=== PATIENT | male | born 1975 | race Hispanic/Latino ===

== ENCOUNTER 2019-04-22 15:37 | Emergency (ER) | payer OTHER ==
--- OUTSIDE RECORDS SUMMARY | 2019-04-22 15:49 | XMS REPORT ---
:1975 Author Organization eClinicalWorks Care Team Providers Name Role Phone Beatty, Na Provider Role Unavailable Allergies, Adverse Reactions, Alerts Substance Reaction Event Type Low-Dose Aspirin throat swells, SOB Drug Allergy Problems Problem Type Condition Code Onset Dates Condition Status Problem Other chronic pain G89.29 Active Problem Bipolar 1 disorder F31.9 Active Problem Depression with anxiety F41.8 Active Problem Pain in left knee M25.562 Active Problem Adult general medical exam Z00.00 Active Problem Hypertriglyceridemia E78.1 Active Problem GERD with esophagitis K21.0 Active Problem Migraine with aura and without G43.109 Active status migrainosus, not intractable Problem Migraine, unspecified, not G43.901 Active intractable, with status migrainosus Problem GERD without esophagitis K21.9 Active Problem GERD (gastroesophageal reflux K21.9 Active disease) Problem Asthma J45.909 Active Assessment Acute sinusitis J01.90 Active Problem Shoulder pain, right M25.511 Active Problem Allergic rhinitis J30.9 Active Medications Medication Code Code Instructions Start End Status Dosage System Date Date Omeprazole [facility] 10567580058 40 MG Orally Active 1 capsule Once a day Augmentin [facility] 53334044055 875-125 MG Aug 13, Active 1 tablet Orally every 12 2018 hrs Depakote [facility] 02118758451 500 MG Orally Active 2 tabs once a day Montelukast [facility] 71361872066 10 MG Orally Active 1 tablet Sodium Once a day in the evening [facility] 40 MG Active 1 CAP(S) ORALLY ONCE A DAY FOR 30 DAYS Albuterol ND 92059603267 (2.5 MG/3ML) Active 3 ml as Sulfate 0.083% needed Inhalation every 6 hrs Claritin [facility] 83250719068 10 MG Orally Active 1 tablet Once a day Prozac [facility] 85380313842 40 MG Orally Active 1 capsule Once a day Mirtazapine [facility] 53873000720 15 MG Orally [place] 30, Active 1 tablet Once a day 2018 at bedtime Promethazine HCl [facility] 05924586669 12.5 MG Orally Active 1 tablet every 6 hrs as needed ProAir HFA [facility] 91307849500 108 (90 Base) Active 2 puffs as MCG/ACT needed Inhalation every 6 hrs Symbicort [facility] 02637491691 160-4.5 MCG/ACT Active 2 puffs Inhalation Twice a day Results No Known Results Summary Purpose eClinicalWorks Submission
--- OUTSIDE RECORDS SUMMARY | 2019-04-22 15:49 | XMS REPORT ---
[...] Problem Pain in left knee M25.562 Active Assessment Pain in left knee M25.562 Active Problem Adult general medical exam Z00.00 Active Assessment GERD with esophagitis K21.0 Active Assessment Other chronic pain G89.29 Active Problem Hypertriglyceridemia E78.1 Active Problem GERD with esophagitis K21.0 Active Problem Migraine with aura and without G43.109 Active status migrainosus, not intractable Problem Migraine, unspecified, not G43.901 Active intractable, with status migrainosus Problem GERD without esophagitis K21.9 Active Assessment Hypertriglyceridemia E78.1 Active Assessment Depression with anxiety F41.8 Active Assessment Allergic rhinitis J30.9 Active Assessment Migraine with aura and without G43.109 Active status migrainosus, not intractable Problem GERD (gastroesophageal reflux K21.9 Active disease) Problem Asthma J45.909 Active Assessment Bipolar 1 disorder F31.9 Active Problem Shoulder pain, right M25.511 Active Problem Allergic rhinitis J30.9 Active Medications Medication Code Code Instructions Start End Status Dosage System Date Date Prozac [facility] 28884306627 40 MG Active 1 CAP(S) ORALLY ONCE A DAY FOR 30 DAYS ProAir HFA [facility] 31253335878 108 (90 Base) Active 2 puffs as MCG/ACT needed Inhalation every 6 hrs Promethazine HCl [facility] 65443653442 12.5 MG Orally Active 1 tablet every 6 hrs as needed Prozac [facility] 53856961504 40 MG Orally Active 1 capsule Once a day Montelukast ND 47903526613 10 MG Orally Active 1 tablet Sodium Once a day in the evening Symbicort [facility] 23534327791 160-4.5 MCG/ACT Active 2 puffs Inhalation Twice a day Albuterol [facility] 01466703962 (2.5 MG/3ML) Active 3 ml as Sulfate 0.083% needed Inhalation every 6 hrs Omeprazole [facility] 93232054459 40 MG Orally Active 1 capsule Once a day Depakote [facility] 69364129703 500 MG Orally Active 2 tabs once a day Mirtazapine [facility] 40362319524 15 MG Orally June 09, Active 1 tablet Once a day 2018 at bedtime Claritin [facility] 11106239389 10 MG Orally Active 1 tablet Once a day Results No Known Results Summary Purpose eClinicalWorks Submission
--- OUTSIDE RECORDS SUMMARY | 2019-04-22 15:49 | XMS REPORT ---
:1975 Author Organization eClinicalWorks Care Team Providers Name Role Phone Beatty, Na Provider Role Unavailable Allergies No Known Allergies Problems Problem Type Condition Code Onset Dates Condition Status Problem Migraine with aura and without G43.109 Active status migrainosus, not intractable Problem GERD without esophagitis K21.9 Active Problem GERD with esophagitis K21.0 Active Problem Gastro-esophageal reflux K21.9 Active Problem Seasonal allergies J30.2 Active Problem Sinusitis J32.9 Active Problem Adult general medical exam Z00.00 Active Problem Migraine, unspecified, not G43.901 Active intractable, with status migrainosus Problem Pain in left knee M25.562 Active Problem Hypertriglyceridemia E78.1 Active Problem GERD (gastroesophageal reflux K21.9 Active disease) Problem Allergic rhinitis J30.9 Active Problem Depression with anxiety F41.8 Active Problem Asthma J45.909 Active Problem Bipolar 1 disorder F31.9 Active Problem Shoulder pain, right M25.511 Active Problem Other chronic pain G89.29 Active Medications No Known Medications Results No Known Results Summary Purpose eClinicalWorks Submission
--- OUTSIDE RECORDS SUMMARY | 2019-04-22 15:49 | XMS REPORT ---
[...] K21.0 Active Problem Gastro-esophageal reflux K21.9 Active Assessment Gastro-esophageal reflux K21.9 Active Problem Seasonal allergies J30.2 Active Problem Sinusitis J32.9 Active Problem Adult general medical exam Z00.00 Active Problem Migraine, unspecified, not G43.901 Active intractable, with status migrainosus Problem Pain in left knee M25.562 Active Problem Hypertriglyceridemia E78.1 Active Problem GERD (gastroesophageal reflux K21.9 Active disease) Assessment Seasonal allergies J30.2 Active Assessment Sinusitis J32.9 Active Problem Allergic rhinitis J30.9 Active Problem Depression with anxiety F41.8 Active Problem Asthma J45.909 Active Problem Bipolar 1 disorder F31.9 Active Problem Shoulder pain, right M25.511 Active Problem Other chronic pain G89.29 Active Medications Medication Code Code Instructions Start End Status Dosage System Date Date Augmentin [facility] 85413523592 875-125 MG Aug 13, Active 1 tablet Orally every 12 2018 hrs ProAir HFA [facility] 82239921493 108 (90 Base) Active 2 puffs as MCG/ACT needed Inhalation every 6 hrs Albuterol [facility] 36797021732 (2.5 MG/3ML) Active 3 ml as Sulfate 0.083% needed Inhalation every 6 hrs Omeprazole [facility] 16878532935 40 MG Orally Active 1 capsule Once a day Mirtazapine ND 92984662306 15 MG Orally Active 1 tablet Once a day at bedtime Depakote [facility] 26549329383 500 MG Orally Active 2 tabs once a day Prozac [facility] 08328032371 40 Active 1 CAP(S) ORALLY ONCE A DAY FOR 30 DAYS Prozac [facility] 69527291792 40 MG Active 1 CAP(S) ORALLY ONCE A DAY FOR 30 DAYS Symbicort [facility] 40570309648 160-4.5 MCG/ACT Active 2 puffs Inhalation Twice a day Prozac [facility] 89148521469 40 MG Orally Active 1 capsule Once a day Promethazine HCl [facility] 01107753346 12.5 MG Orally Active 1 tablet every 6 hrs as needed Amoxicillin [facility] 46399361812 500 MG Orally Oct 15, Oct 22, Active 1 tablet every 8 hrs 2017 2017 Wellbutrin SR [facility] 94830492507 100 MG Orally Sep 10, Active 1 tablet Once a day 2017 in the morning Mirtazapine [facility] 64035839112 15 Orally Once Active 1 tablet a day at bedtime Montelukast [facility] 60569503161 10 MG Orally Active 1 tablet Sodium Once a day in the evening Claritin [facility] 19192632686 10 MG Orally Active 1 tablet Once a day Results No Known Results Summary Purpose eClinicalWorks Submission
--- OUTSIDE RECORDS SUMMARY | 2019-04-22 15:49 | XMS REPORT ---
:1975 Author Organization eClinicalWorks Care Team Providers Name Role Phone Beatty, Na Provider Role Unavailable Allergies, Adverse Reactions, Alerts Substance Reaction Event Type Low-Dose Aspirin throat swells, SOB Drug Allergy Problems Problem Type Condition Code Onset Dates Condition Status Problem Bipolar 1 disorder F31.9 Active Problem Asthma J45.909 Active Problem GERD (gastroesophageal reflux K21.9 Active disease) Problem Migraine, unspecified, not G43.901 Active intractable, with status migrainosus Problem GERD without esophagitis K21.9 Active Problem Adult general medical exam Z00.00 Active Problem Allergic rhinitis J30.9 Active Problem Shoulder pain, right M25.511 Active Problem GERD with esophagitis K21.0 Active Problem Migraine with aura and without G43.109 Active status migrainosus, not intractable Assessment Other fatigue R53.83 Active Assessment Encounter for vision screening Z01.00 Active Assessment Bipolar 1 disorder F31.9 Active Assessment Adult general medical exam Z00.00 Active Assessment Allergic rhinitis J30.9 Active Problem Other chronic pain G89.29 Active Assessment Depression with anxiety F41.8 Active Problem Depression with anxiety F41.8 Active Medications Medication Code Code Instructions Start End Status Dosage System Date Date ProAir HFA [facility] 01417731594 108 (90 Base) Active 2 puffs as MCG/ACT needed Inhalation every 6 hrs Omeprazole [facility] 23671648501 40 MG Orally Active 1 capsule Once a day Depakote [facility] 28951961635 500 MG Orally Active as directed Montelukast ND 49661728549 10 MG Orally Active 1 tablet in Sodium Once a day the evening Symbicort [facility] 56510992563 160-4.5 MCG/ACT Active 2 puffs Inhalation Twice a day Albuterol [facility] 06285678143 (2.5 MG/3ML) Active 3 ml as Sulfate 0.083% needed Inhalation every 6 hrs Prozac [facility] 89862827709 40 MG Orally Active 1 capsule Once a day Promethazine HCl [facility] 72075369906 12.5 MG Orally Active 1 tablet as every 6 hrs needed Claritin [facility] 86241983031 10 MG Orally Active 1 tablet Once a day Results No Known Results Summary Purpose eClinicalWorks Submission
--- OUTSIDE RECORDS SUMMARY | 2019-04-22 15:50 | XMS REPORT ---
[...] Active Problem Gastro-esophageal reflux K21.9 Active Assessment Hypertriglyceridemia E78.1 Active Problem Seasonal allergies J30.2 Active Assessment Allergic rhinitis J30.9 Active Assessment GERD with esophagitis K21.0 Active Problem Sinusitis J32.9 Active Problem Adult general medical exam Z00.00 Active Problem Migraine, unspecified, not G43.901 Active intractable, with status migrainosus Problem Pain in left knee M25.562 Active Problem Hypertriglyceridemia E78.1 Active Problem GERD (gastroesophageal reflux K21.9 Active disease) Assessment Depression with anxiety F41.8 Active Assessment Bipolar 1 disorder F31.9 Active Problem Allergic rhinitis J30.9 Active Problem Depression with anxiety F41.8 Active Problem Asthma J45.909 Active Problem Bipolar 1 disorder F31.9 Active Assessment Renal insufficiency N28.9 Active Problem Shoulder pain, right M25.511 Active Problem Other chronic pain G89.29 Active Medications Medication Code Code Instructions Start End Status Dosage System Date Date Depakote [facility] 99033400465 500 MG Orally Active 2 tabs once a day ProAir HFA [facility] 40969297588 108 (90 Base) Active 2 puffs as MCG/ACT needed Inhalation every 6 hrs Wellbutrin SR [facility] 08522082110 100 MG Orally Active 1 tablet Once a day in the morning Omeprazole [facility] 79259367454 40 MG Orally Active 1 capsule Once a day Mirtazapine [facility] 58532250010 15 Orally Once Active 1 tablet a day at bedtime Montelukast [facility] 32899455792 10 MG Orally Active 1 tablet Sodium Once a day in the evening Prozac [facility] 03957776666 40 MG Active 1 CAP(S) ORALLY ONCE A DAY FOR 30 DA[facility] 40 MG Orally Active 1 capsule Once a day Promethazine HCl [facility] 57320767607 12.5 MG Orally Active 1 tablet every 6 hrs as needed Albuterol [facility] 56690709463 (2.5 MG/3ML) Active 3 ml as Sulfate 0.083% needed Inhalation every 6 hrs Symbicort [facility] 63645387178 160-4.5 MCG/ACT Active 2 puffs Inhalation Twice a day Mirtazapine [facility] 48303375324 15 MG Orally Active 1 tablet Once a day at bedtime Augmentin [facility] 37835377447 875-125 MG Aug 13, Active 1 tablet Orally every 12 2018 hrs [facility] 18535304502 40 Active 1 CAP(S) ORALLY ONCE A DAY FOR 30 DAYS Claritin [facility] 00853232871 10 MG Orally Active 1 tablet Once a day Results No Known Results Summary Purpose eClinicalWorks Submission
--- OUTSIDE RECORDS SUMMARY | 2019-04-22 15:50 | XMS REPORT ---
:1975 Author Organization eClinicalWorks Care Team Providers Name Role Phone Beatty, Na Provider Role Unavailable Allergies, Adverse Reactions, Alerts Substance Reaction Event Type Low-Dose Aspirin throat swells, SOB Drug Allergy Problems Problem Type Condition Code Onset Dates Condition Status Assessment Obesity (BMI 30-39.9) E66.9 Active Assessment Insomnia, unspecified type G47.00 Active Assessment Renal insufficiency N28.9 Active Assessment GERD with esophagitis K21.0 Active Assessment Allergic rhinitis J30.9 Active Assessment Hypertriglyceridemia E78.1 Active Problem Migraine, unspecified, not G43.901 Active intractable, with status migrainosus Assessment Depression with anxiety F41.8 Active Problem Other chronic pain G89.29 Active Assessment Bipolar 1 disorder F31.9 Active Problem Adult general medical exam Z00.00 Active Problem Hypertriglyceridemia E78.1 Active Problem Pain in left knee M25.562 Active Problem 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 Problem Mental disorder, not otherwise F99 Active specified Problem GERD (gastroesophageal reflux K21.9 Active disease) Problem Obesity (BMI 30-39.9) E66.9 Active Assessment Medicare annual wellness visit, Z00.00 Active subsequent Problem Seasonal allergies J30.2 Active Problem Gastro-esophageal reflux K21.9 Active Problem Insomnia, unspecified type G47.00 Active Problem Sinusitis J32.9 Active Problem Allergic rhinitis J30.9 Active Problem Depression with anxiety F41.8 Active Problem Asthma J45.909 Active Problem Shoulder pain, right M25.511 Active Problem GERD with esophagitis K21.0 Active Problem GERD without esophagitis K21.9 Active Problem Bipolar 1 disorder F31.9 Active Problem Migraine with aura and without G43.109 Active status migrainosus, not intractable Medications Medication Code Code Instructions Start End Status Dosage System Date Date Albuterol [facility] 25857934100 (2.5 MG/3ML) Active 3 ml as Sulfate 0.083% needed Inhalation every 6 hrs Claritin ND 54023418480 10 MG Orally Active 1 tablet Once a day Wellbutrin SR [facility] 00504068479 100 MG Orally Active 1 tablet Once a day in the morning Prozac [facility] 30380615613 40 MG Orally Active 1 capsule Once a day Wellbutrin SR [facility] 09695969333 100 Orally Once Active 1 tablet a day in the morning Montelukast [facility] 10666242034 10 MG Orally Active 1 tablet Sodium Once a day in the evening Mirtazapine [facility] 22283342509 30 MG Orally Active 1 tablet Once a day at bedtime Symbicort [facility] 76419925773 160-4.5 MCG/ACT Active 2 puffs Inhalation Twice a day Prozac [facility] 80495876800 40 MG Active 1 CAP(S) ORALLY ONCE A DAY FOR 30 DAYS Depakote [facility] 45385005055 500 MG Orally Active 2 tabs once a day Omeprazole [facility] 44592264511 40 MG Orally Active 1 capsule Once a day Promethazine HCl [facility] 73601652040 12.5 MG Orally Active 1 tablet every 6 hrs as needed Augmentin [facility] 20269910398 875-125 MG Aug 13, Active 1 tablet Orally every 12 2018 hrs Mirtazapine [facility] 13549283181 15 Orally Once Active 1 tablet a day at bedtime Prozac [facility] 94797817362 40 Active 1 CAP(S) ORALLY ONCE A DAY FOR 30 DAYS ProAir HFA [facility] 39105854181 108 (90 Base) Active 2 puffs as MCG/ACT needed Inhalation every 6 hrs Results No Known Results Summary Purpose eClinicalWorks Submission
--- NOTE | 2019-04-22 16:36 | RAD REPORT ---
EXAM DESCRIPTION: RAD - Chest Pa And Lat (2 Views) - 04/22/2019 4:21 pm CLINICAL HISTORY: Cough, fever, shortness of breath COMPARISON: October 2016 TECHNIQUE: PA and lateral views of the chest were obtained. FINDINGS: The lungs are clear of failure, infiltrate or mass. Interstitial markings are prominent bu t not clearly different from comparison. Heart size is normal and central vasculature is within nor mal limits. No pleural effusion or pneumothorax seen. No acute bony finding noted. No aortic abnor mality. IMPRESSION: No acute cardiopulmonary process.
[2019-04-22] MEDS ORDERED: DEXAMETHASONE 4 MG TAB ONE (17:30)
--- NOTE | 2019-04-22 18:01 | ER ---
Nurse's Notes [facility] Name: Roney Sandoval Age: 43 yrs Sex: Male : 1975 Arrival Date: 04/22/2019 Time: 15:43 Bed 19 Private MD: Diagnosis: Cough;Bronchitis, not specified as acute or chronic;Acute laryngitis Presentation: 04/22 15:48 Presenting complaint: Patient states: i started coughing last Saturday and been SOB and hj fatigue and been passing out since Saturday, cammie been sleeping a lot too since then; reports fever;. Transition of care: patient was not received from another setting of care. Onset of symptoms was April 22, 2019. Risk Assessment: Do you want to hurt yourself or someone else? Patient reports no desire to harm self or others. Initial Sepsis Screen: Does the patient meet any 2 criteria? No. Patient's initial sepsis screen is negative. Does the patient have a suspected source of infection? No. Patient's initial sepsis screen is negative. Care prior to arrival: None. 15:48 Method Of Arrival: Ambulatory 15:48 Acuity: EMANUEL 3 hj Triage Assessment: 15:55 General: Appears. Respiratory: Onset: The symptoms/episode began/occurred 4 days ago, tw2 the patient has mild shortness of breath. Respiratory: Reports shortness of breath cough that is. Historical: - Allergies: 15:50 Aspirin; hj - PMHx: 15:50 Asthma; hj - PSHx: 15:50 None; hj - Immunization history:: Adult Immunizations. - Social history:: Smoking status: . - Ebola Screening: : Patient denies travel to an Ebola-affected area in the 21 days before illness onset. Screenin:54 Abuse screen: Denies threats or abuse. Nutritional screening: No deficits noted. tw2 Tuberculosis screening: No symptoms or risk factors identified. Fall Risk None identified. Assessment: 15:53 General: Appears in no apparent distress. well groomed, Behavior is calm, cooperative, tw2 appropriate for age. Pain: Complains of pain in sinuses. Neuro: Level of Consciousness is awake, alert, obeys commands, Oriented to person, place, time, situation. Cardiovascular: Heart tones S1 S2 Patient's skin is warm and dry. Rhythm is regular. Respiratory: Reports shortness of breath pain with cough Airway is patent Respiratory effort is even, unlabored, Respiratory pattern is regular, symmetrical, Breath sounds are clear bilaterally. GI: No signs and/or symptoms were reported involving the gastrointestinal system. : No signs and/or symptoms were reported regarding the genitourinary system. EENT: Reports nasal congestion nasal discharge. Derm: No signs and/or symptoms reported regarding the dermatologic system. Musculoskeletal: Range of motion: intact in all extremities. 17:17 Reassessment: Patient appears in no apparent distress at this time. No changes from tw2 previously documented assessment. Patient and/or family updated on plan of care and expected duration. Pain level reassessed. Patient is alert, oriented x 3, equal unlabored respirations, skin warm/dry/pink. 18:15 Reassessment: Patient appears in no apparent distress at this time. No changes from tw2 previously documented assessment. Patient and/or family updated on plan of care and expected duration. Pain level reassessed. Patient is alert, oriented x 3, equal unlabored respirations, skin warm/dry/pink. Vital Signs: 15:50 BP 126 / 77; Pulse 89; Resp 18; Temp 97.8(TE); Pulse Ox 100% on R/A; Weight 92.99 kg; hj Height 5 ft. 9 in. (175.26 cm); Pain 6/10; 16:13 BP 116 / 74 Supine; Pulse 81; tw2 16:13 BP 119 / 87 Sitting; Pulse 84; tw2 16:13 BP 118 / 78 Standing; Pulse 79; Resp 18; Pulse Ox 99% on R/A; tw2 17:17 BP 130 / 89; Pulse 90; Resp 17; Pulse Ox 99% on R/A; tw2 18:15 BP 125 / 83; Pulse 88; Resp 17; Pulse Ox 100% on R/A; tw2 15:50 Body Mass Index 30.27 (92.99 kg, 175.26 cm) ED Course: 15:43 Patient arrived in ED. mr 15:49 Triage completed. hj 15:50 Arm band placed on right wrist. hj 15:53 Noris Roth, RN is Primary Nurse. tw2 15:55 Bed in low position. Call light in reach. secured entrance monitor on. Pulse ox on. NIBP on. tw2 16:04 Opal Soto FNP-C is PHCP. snw 16:04 Elias Purvis MD is Attending Physician. snw 16:20 X-ray completed. Patient tolerated procedure well. Patient moved back from radiology. bb2 16:21 Chest Pa And Lat (2 Views) XRAY In Process Unspecified. EDMS 17:16 Strep swab sent to lab. 3 18:07 Awaiting: discharge paper completion and provider to give results to pt at this time. tw2 18:17 No provider procedures requiring assistance completed. Patient did not have IV access tw2 during this emergency room visit. Administered Medications: 17:16 Drug: Decadron 8 mg Route: PO; tw2 17:47 Follow up: Response: No adverse reaction tw2 18:15 Follow up: Response: No adverse reaction tw2 Outcome: 18:01 Discharge ordered by . snw 18:17 Discharged to home ambulatory. tw2 18:17 Condition: stable 18:17 Discharge instructions given to patient, Instructed on discharge instructions, follow up and referral plans. medication usage, Demonstrated understanding of instructions, follow-up care, medications, Prescriptions given X 3. 18:17 Patient left the ED. tw2 Signatures: Dispatcher [employer] EDLA Opal Soto, DIRECTOR OF FINANCIAL AIDLeidyC DIRECTOR OF FINANCIAL AID-[facility] Danuta Adamson mr Pa Felipe, RN RN Noris Turcios RN RN tw2 Isidra Sandoval 3 Winter Reis bb2 Corrections: (The following items were deleted from the chart) 15:51 15:50 Pulse 97bpm; Resp 18bpm; Pulse Ox 100% RA; Temp 97.8F Temporal; 92.99 kg; Height hj 5 ft. 9 in.; BMI: 30.2; Pain 6/10; hj
--- NOTE | 2019-04-22 18:02 | EDPHYS ---
Physician Documentation [facility] Name: Roney Sandoval Age: 43 yrs Sex: Male : 1975 Arrival Date: 04/22/2019 Time: 15:43 Bed 19 Private MD: ED Physician Elias Purvis HPI: 04/22 19:46 This 43 yrs old Male presents to ER via Ambulatory with complaints of snw Shortness Of Breath, Congestion. 19:46 The patient has shortness of breath with light activity. Onset: The symptoms/episode snw began/occurred suddenly, 3 day(s) ago, and became persistent. Duration: The symptoms are continuous. The patient's shortness of breath has no apparent modifying factors. Associated signs and symptoms: Pertinent positives: mild sore throat. Severity of symptoms: At their worst the symptoms were moderate. The patient has experienced a previous episode. It is unknown whether or not the patient has recently seen a physician. Historical: - Allergies: 15:50 Aspirin; hj - PMHx: 15:50 Asthma; hj - PSHx: 15:50 None; hj - Immunization history:: Adult Immunizations. - Social history:: Smoking status: . - Ebola Screening: : Patient denies travel to an Ebola-affected area in the 21 days before illness onset. ROS: 19:45 Constitutional: Negative for fever, chills, and weight loss, Eyes: Negative for injury, snw pain, redness, and discharge, ENT: Negative for injury, pain, and discharge, Neck: Negative for injury, pain, and swelling, Cardiovascular: Negative for chest pain, palpitations, and edema, Abdomen/GI: Negative for abdominal pain, nausea, vomiting, diarrhea, and constipation, Back: Negative for injury and pain, : Negative for injury, bleeding, discharge, and swelling, MS/Extremity: Negative for injury and deformity, Skin: Negative for injury, rash, and discoloration, Neuro: Negative for headache, weakness, numbness, tingling, and seizure. 19:45 Respiratory: Positive for cough, with rust-colored sputum. Exam: 19:45 Constitutional: This is a well developed, well nourished patient who is awake, alert, snw and in no acute distress. Head/Face: Normocephalic, atraumatic. Eyes: Pupils equal round and reactive to light, extra-ocular motions intact. Lids and lashes normal. Conjunctiva and sclera are non-icteric and not injected. Cornea within normal limits. Periorbital areas with no swelling, redness, or edema. Neck: Trachea midline, no thyromegaly or masses palpated, and no cervical lymphadenopathy. Supple, full range of motion without nuchal rigidity, or vertebral point tenderness. No Meningismus. Chest/axilla: Normal chest wall appearance and motion. Nontender with no deformity. No lesions are appreciated. Cardiovascular: Regular rate and rhythm with a normal S1 and S2. No gallops, murmurs, or rubs. Normal PMI, no JVD. No pulse deficits. Respiratory: Lungs have equal breath sounds bilaterally, clear to auscultation and percussion. No rales, rhonchi or wheezes noted. No increased work of breathing, no retractions or nasal flaring. Abdomen/GI: Soft, non-tender, with normal bowel sounds. No distension or tympany. No guarding or rebound. No evidence of tenderness throughout. Back: No spinal tenderness. No costovertebral tenderness. Full range of motion. Skin: Warm, dry with normal turgor. Normal color with no rashes, no lesions, and no evidence of cellulitis. MS/ Extremity: Pulses equal, no cyanosis. Neurovascular intact. Full, normal range of motion. Neuro: Awake and alert, GCS 15, oriented to person, place, time, and situation. Cranial nerves II-XII grossly intact. Motor strength 5/5 in all extremities. Sensory grossly intact. Cerebellar exam normal. Normal gait. 19:45 ENT: Ear canal(s): are normal, TM's: are normal, Nose: is normal, Mouth: is normal, Posterior pharynx: is normal, Voice: is hoarse. Vital Signs: 15:50 BP 126 / 77; Pulse 89; Resp 18; Temp 97.8(TE); Pulse Ox 100% on R/A; Weight 92.99 kg; hj Height 5 ft. 9 in. (175.26 cm); Pain 6/10; 16:13 BP 116 / 74 Supine; Pulse 81; tw2 16:13 BP 119 / 87 Sitting; Pulse 84; tw2 16:13 BP 118 / 78 Standing; Pulse 79; Resp 18; Pulse Ox 99% on R/A; tw2 17:17 BP 130 / 89; Pulse 90; Resp 17; Pulse Ox 99% on R/A; tw2 18:15 BP 125 / 83; Pulse 88; Resp 17; Pulse Ox 100% on R/A; tw2 15:50 Body Mass Index 30.27 (92.99 kg, 175.26 cm) hj MDM: 16:14 Patient medically screened. snw 18:03 Data reviewed: vital signs, nurses notes, lab test result(s), radiologic studies. snw Counseling: I had a detailed discussion with the patient and/or guardian regarding: the historical points, exam findings, and any diagnostic results supporting the discharge/admit diagnosis, lab results, radiology results, the need for outpatient follow up, to return to the emergency department if symptoms worsen or persist or if there are any questions or concerns that arise at home. Special discussion: Based on the history and exam findings, there is no indication for further emergent testing or inpatient evaluation. I discussed with the patient/guardian the need to see the primary care provider for further evaluation of the symptoms. 04/22 17:11 Order name: Strep; Complete Time: 17:49 snw 04/22 17:51 Order name: Throat Culture EDMS 04/22 16:05 Order name: Chest Pa And Lat (2 Views) XRAY; Complete Time: 16:51 snw 04/22 16:05 Order name: Orthostatics; Complete Time: 16:12 snw Administered Medications: 17:16 Drug: Decadron 8 mg Route: PO; tw2 17:47 Follow up: Response: No adverse reaction tw2 18:15 Follow up: Response: No adverse reaction tw2 Disposition: 04/22/19 18:01 Discharged to Home. Impression: Cough, Bronchitis, not specified as acute or chronic, Acute laryngitis. - Condition is Stable. - Discharge Instructions: Acute Bronchitis, Adult, Hypertension, Laryngitis, Upper Respiratory Infection, Adult, Cool Mist Vaporizer. - Prescriptions for Zyrtec 10 mg Oral Tablet - take 1 tablet by ORAL route once daily As needed; 20 tablet. Prednisone 20 mg Oral Tablet - take 2 tablet by ORAL route once daily for 5 days; 10 tablet. Pepcid 20 mg Oral Tablet - take 1 tablet by ORAL route once daily for 10 days; 10 tablet. - Work release form, Medication Reconciliation Form, Thank You Letter, Antibiotic Education, Prescription Opioid Use form. - Follow up: Private Physician; When: 2 - 3 days; Reason: Recheck today's complaints, Continuance of care, Re-evaluation by your physician. Follow up: Emergency Department; When: As needed; Reason: Worsening of condition. Signatures: Dispatcher [employer] EDMS Brittany Opal, JEEP DRIVER-C JEEP DRIVER-Csnw Pa Felipe RN RN Noris Roth RN RN tw2 Corrections: (The following items were deleted from the chart) 18:04 18:03 Immunization status: snw snw 18:04 18:03 Immunization status: snw snw 18:17 18:01 04/22/2019 18:01 Discharged to Home. Impression: Cough; Bronchitis, not specified tw2 as acute or chronic; Acute laryngitis. Condition is Stable. Forms are Medication Reconciliation Form, Thank You Letter, Antibiotic Education, Prescription Opioid Use. Follow up: Private Physician; When: 2 - 3 days; Reason: Recheck today's complaints, Continuance of care, Re-evaluation by your physician. Follow up: Emergency Department; When: As needed; Reason: Worsening of condition. snw
== END 2019-04-22 18:17 | disposition home or self-care (01) ==
LOC: ER 15:37
DX: J40 Bronchitis, not specified as acute or chronic (principal); J04.0 Acute laryngitis; Z88.6 Allergy status to analgesic agent
CPT/HCPCS: 71046; 87070; 87081; 99284

== ENCOUNTER 2019-09-10 06:53 | Emergency (ER) | payer OTHER ==
[2019-09-10] MEDS ORDERED: ONDANSETRON 4 MG/2 ML VIAL ONE (07:35)
[2019-09-10] MEDS ORDERED: MORPHINE 4 MG/ML SYR ONE (07:35)
[2019-09-10 07:49] LABS: Absolute Lymphocytes (CBC) 1.4 K/uL (0.7-4.9); Basophils % 0.4 % (0-1.3); Hematocrit 48.9 % (39.6-49.0); Lymphocytes % 20.5 % (15.3-44.8); MPV 8.1 fL (7.6-11.3)
[2019-09-10 07:55] LABS: Albumin 3.9 g/dL (3.4-5.0); Bilirubin Direct 0.1 mg/dL (0-0.2); Bilirubin Total 0.4 mg/dL (0.2-1.0); Potassium 3.9 mmol/L (3.5-5.1); Protein, Total 7.6 g/dL (6.4-8.2)
[2019-09-10] MEDS ORDERED: NA CHLORIDE 0.9% 1,000 ML ONE (08:08)
--- NOTE | 2019-09-10 08:49 | RAD REPORT ---
EXAM DESCRIPTION: CT - Abdomen Pelvis W Contrast - 09/10/2019 8:19 am CLINICAL HISTORY: Abdominal pain COMPARISON: none. TECHNIQUE: Computed axial tomography of the abdomen pelvis was obtained. 100 cc Isovue-300 was admin istered intravenously. Oral contrast was not requested which limits evaluation of bowel and appendix. All CT scans are performed using dose optimization technique as appropriate and may include automated exposure control or mA/KV adjustment according to patient size. FINDINGS: 17 millimeter intermediate density lesion right lobe of liver. Spleen, pancreas, adrenal and left kidney appear unremarkable. Mild right hydronephrosis. 2 millimeter calculus right UVJ There is no evidence of diverticulitis. Appendix not seen IMPRESSION: 2 millimeter calculus right UVJ resulting in mild right hydronephrosis 17 millimeter hepatic lesion. Nonemergent ultrasound recommended for further evaluation
[2019-09-10] MEDS ORDERED: KETOROLAC 30 MG/ML INJ ONE (09:00)
[2019-09-10] MEDS ORDERED: TAMSULOSIN 0.4 MG SR CAP ONE (09:00)
--- NOTE | 2019-09-10 09:24 | ER ---
Nurse's Notes [facility] Name: Roney Sandoval Age: 43 yrs Sex: Male : 1975 Arrival Date: 09/10/2019 Time: 06:56 Bed 20 Private MD: Diagnosis: Hydronephrosis with renal and ureteral calculous obstruction Presentation: 09/10 07:10 Presenting complaint: Patient states: Bilateral lower abd pain that radiates to the sg flank, started Saturday, reports diarrhea and chills as well. Transition of care: patient was not received from another setting of care. Onset of symptoms was September 10, 2019. Risk Assessment: Do you want to hurt yourself or someone else? Patient reports no desire to harm self or others. Initial Sepsis Screen: Does the patient meet any 2 criteria? No. Patient's initial sepsis screen is negative. Does the patient have a suspected source of infection? Yes: Acute abdominal pain. Care prior to arrival: None. 07:10 Acuity: EMANUEL 3 sg 07:10 Method Of Arrival: Ambulatory sg Historical: - Allergies: 07:13 Aspirin; sg - Home Meds: 07:13 None [Active]; sg - PMHx: 07:13 Asthma; sg - PSHx: 07:13 None; sg - Immunization history:: Adult Immunizations not up to date. - Social history:: Smoking status: Patient/guardian denies using tobacco. - Ebola Screening: : Patient negative for fever greater than or equal to 101.5 degrees Fahrenheit, and additional compatible Ebola Virus Disease symptoms Patient denies exposure to infectious person Patient denies travel to an Ebola-affected area in the 21 days before illness onset No symptoms or risks identified at this time. Screenin:15 Abuse screen: Denies threats or abuse. Denies injuries from another. Nutritional sg screening: No deficits noted. Tuberculosis screening: No symptoms or risk factors identified. Fall Risk None identified. Assessment: 07:15 General: Appears in no apparent distress. well groomed, well developed, well nourished, sg Behavior is calm, cooperative, appropriate for age. Pain: Complains of pain in left mid back, right mid back, right lower quadrant and left lower quadrant Quality of pain is described as tender. Neuro: Level of Consciousness is awake, alert, obeys commands, Oriented to person, place, time, Speech is normal, Facial symmetry appears normal. Cardiovascular: Capillary refill is brisk in bilateral fingers Patient's skin is warm and dry. Chest pain is denied. Respiratory: Airway is patent Respiratory effort is even, unlabored, Respiratory pattern is regular, symmetrical. GI: Bowel sounds present X 4 quads. Abd is soft X 4 quads Abdomen is tender to palpation in right lower quadrant and left lower quadrant. : Reports pain in bilateral flank(s). EENT: No signs and/or symptoms were reported regarding the EENT system. Derm: Skin is pink, warm \T\ dry. Musculoskeletal: No signs and/or symptoms reported regarding the musculoskeletal system. Vital Signs: 07:12 BP 141 / 84; Pulse 87; Resp 17; Temp 97.9(TE); Pulse Ox 98% on R/A; Pain 7/10; sg ED Course: 06:56 Patient arrived in ED. ag3 06:57 Jose Dutton PA is PHCP. jr8 06:57 Kenrick Martinez MD is Attending Physician. jr8 07:10 Mayur Santiago, ERIC is Primary Nurse. sg 07:12 Triage completed. sg 07:13 Arm band placed on. sg 07:15 Patient has correct armband on for positive identification. Bed in low position. Call sg light in reach. Side rails up X2. Pulse ox on. NIBP on. 07:28 Initial lab(s) drawn, by me, sent to lab. Inserted saline lock: 20 gauge in right dh3 forearm, using aseptic technique. 08:23 CT Abd/Pelvis - IV Contrast Only In Process Unspecified. EDMS 09:03 Urine collected: clean catch specimen, cloudy, scott colored. jb1 09:22 Tamera Grajeda MD is Referral Physician. jr8 09:30 No provider procedures requiring assistance completed. IV discontinued, intact, sg bleeding controlled, No redness/swelling at site. Pressure dressing applied. Administered Medications: 07:32 Drug: Zofran 4 mg Route: IVP; Site: right forearm; sg 08:40 Follow up: Response: No adverse reaction sg 07:32 Drug: morphine 4 mg Route: IVP; Site: right forearm; sg 08:40 Follow up: Response: No adverse reaction; RASS: Alert and Calm (0) sg 07:34 Not Given (Other Intervention Used): morphine 5 mg IM once; RASS on ADMIN: Combtv4, jr8 Very Agttd3, Agttd2, Rstlss1, AlertClm0, Drwsy-1, Lt Sdtn-2, Mod Sdtn-3, Dp Sdtn-4, UnArsble-5 08:52 Drug: NS 0.9% 1000 ml Route: IV; Rate: 1 bolus; Site: right forearm; sg 09:05 Drug: TORadol - Ketorolac 15 mg Route: IVP; Site: right forearm; sg 09:05 Drug: Flomax 0.4 mg Route: PO; sg Outcome: 09:23 Discharge ordered by jrMelonie 09:30 Discharged to home ambulatory. sg 09:30 Condition: good 09:30 Discharge instructions given to patient, Instructed on discharge instructions, follow up and referral plans. medication usage, safety practices. 09:34 Patient left the ED. sg Signatures: Dispatcher [employer] EDMS Seamus Robledo jb1 Mayur Santiago, RN RN Jose Dutton PA PA jr8 Isidra Sandoval 3 Carmen Haddad 3
--- NOTE | 2019-09-10 09:24 | EDPHYS ---
Physician Documentation [facility] Name: Roney Sandoval Age: 43 yrs Sex: Male : 1975 Arrival Date: 09/10/2019 Time: 06:56 Bed 20 Private MD: ED Physician Kenrick Martinez HPI: 09/10 07:20 This 43 yrs old Male presents to ER via Ambulatory with complaints of jr8 Abdominal Pain. 07:20 The patient presents with abdominal pain in the lower abdomen, right lower quadrant, in jr8 the left lower quadrant. Onset: The symptoms/episode began/occurred 3 day(s) ago. The symptoms do not radiate. Associated signs and symptoms: Pertinent positives: diarrhea, fever. The symptoms are described as crampy, sharp, stabbing. Severity of pain: At its worst the pain was moderate in the emergency department the pain is unchanged. The patient has not experienced similar symptoms in the past. pt reports lower abdominal pain for the last three days with subjective fever and diarrhea.. Historical: - Allergies: 07:13 Aspirin; sg - Home Meds: 07:13 None [Active]; sg - PMHx: 07:13 Asthma; sg - PSHx: 07:13 None; sg - Immunization history:: Adult Immunizations not up to date. - Social history:: Smoking status: Patient/guardian denies using tobacco. - Ebola Screening: : Patient negative for fever greater than or equal to 101.5 degrees Fahrenheit, and additional compatible Ebola Virus Disease symptoms Patient denies exposure to infectious person Patient denies travel to an Ebola-affected area in the 21 days before illness onset No symptoms or risks identified at this time. ROS: 07:21 Constitutional: Negative for chills, and weight loss, Eyes: Negative for injury, pain, jr8 redness, and discharge, ENT: Negative for injury, pain, and discharge, Neck: Negative for injury, pain, and swelling, Cardiovascular: Negative for chest pain, palpitations, and edema, Respiratory: Negative for shortness of breath, cough, wheezing, and pleuritic chest pain, Back: Negative for injury and pain, : Negative for injury, bleeding, discharge, and swelling, MS/Extremity: Negative for injury and deformity, Neuro: Negative for headache, weakness, numbness, tingling, and seizure. 07:21 Abdomen/GI: Positive for abdominal pain, diarrhea. Exam: 07:21 Constitutional: This is a well developed, well nourished patient who is awake, alert, jr8 and in no acute distress. Head/Face: Normocephalic, atraumatic. Eyes: Pupils equal round and reactive to light, extra-ocular motions intact. Lids and lashes normal. Conjunctiva and sclera are non-icteric and not injected. Cornea within normal limits. Periorbital areas with no swelling, redness, or edema. ENT: Nares patent. No nasal discharge, no septal abnormalities noted. Tympanic membranes are normal and external auditory canals are clear. Oropharynx with no redness, swelling, or masses, exudates, or evidence of obstruction, uvula midline. Mucous membranes moist. Neck: Trachea midline, no thyromegaly or masses palpated, and no cervical lymphadenopathy. Supple, full range of motion without nuchal rigidity, or vertebral point tenderness. No Meningismus. 07:21 Chest/axilla: Inspection: normal, Palpation: is normal. 07:21 Cardiovascular: Heart sounds: normal, normal S1and S2, Edema: is not appreciated. 07:21 Respiratory: the patient does not display signs of respiratory distress, Respirations: normal, Breath sounds: are clear throughout, Respiratory rate: 17 07:21 Abdomen/GI: Inspection: abdomen appears normal, Bowel sounds: normal, in all quadrants, Palpation: soft, in all quadrants, mild abdominal tenderness, in all quadrants, rebound tenderness, is not appreciated, Indicators: McBurney's point is tender, Hernandez's sign is negative, Rovsing's sign is negative, Obturator sign is negative, Psoas sign is negative. Vital Signs: 07:12 BP 141 / 84; Pulse 87; Resp 17; Temp 97.9(TE); Pulse Ox 98% on R/A; Pain 7/10; sg MDM: 07:14 Patient medically screened. jr8 09:21 Data reviewed: vital signs, nurses notes, lab test result(s), radiologic studies, CT jr8 scan, and as a result, I will discharge patient. Data interpreted: Pulse oximetry: on room air is 98 %. Interpretation: normal. Counseling: I had a detailed discussion with the patient and/or guardian regarding: the historical points, exam findings, and any diagnostic results supporting the discharge/admit diagnosis, lab results, radiology results, the need for outpatient follow up, a urologist. Special discussion: Based on the patient's Hx, exam, and Dx evaluation, there is no indication for emergent surgery or inpatient Tx. It is understood by the patient/guardian that if the Sx's persist or worsen they need to return immediately for re-evaluation. 09/10 07:15 Order name: Basic Metabolic Panel; Complete Time: 07:56 09/10 07:15 Order name: CBC with Diff; Complete Time: 07:56 09/10 07:15 Order name: Creatinine for Radiology; Complete Time: 07:56 09/10 07:15 Order name: Hepatic Function; Complete Time: 07:56 09/10 07:15 Order name: Lipase; Complete Time: 07:56 09/10 09:13 Order name: Urine Dipstick--Ancillary (enter results) eb 09/10 07:15 Order name: IV Saline Lock; Complete Time: 07:41 8 09/10 08:03 Order name: CT Abd/Pelvis - IV Contrast Only; Complete Time: 08:53 8 09/10 07:15 Order name: Labs collected and sent; Complete Time: 07:41 [facility] 09/10 07:15 Order name: Urine Dipstick-Ancillary (obtain specimen); Complete Time: 08:58 Administered Medications: 07:32 Drug: Zofran 4 mg Route: IVP; Site: right forearm; sg 08:40 Follow up: Response: No adverse reaction sg 07:32 Drug: morphine 4 mg Route: IVP; Site: right forearm; sg 08:40 Follow up: Response: No adverse reaction; RASS: Alert and Calm (0) sg 07:34 Not Given (Other Intervention Used): morphine 5 mg IM once; RASS on ADMIN: Combtv4, jr8 Very Agttd3, Agttd2, Rstlss1, AlertClm0, Drwsy-1, Lt Sdtn-2, Mod Sdtn-3, Dp Sdtn-4, UnArsble-5 08:52 Drug: NS 0.9% 1000 ml Route: IV; Rate: 1 bolus; Site: right forearm; sg 09:05 Drug: TORadol - Ketorolac 15 mg Route: IVP; Site: right forearm; sg 09:05 Drug: Flomax 0.4 mg Route: PO; sg Disposition: 09/11 09:04 Co-signature as Attending Physician, Kenrick Martinez MD I agree with the assessment and kdr plan of care. Disposition: 09/10/19 09:23 Discharged to Home. Impression: Hydronephrosis with renal and ureteral calculous obstruction. - Condition is Stable. - Discharge Instructions: Kidney Stones, Hydronephrosis. - Prescriptions for Tylenol- Codeine #3 300-30 mg Oral Tablet - take 2 tablets by ORAL route every 6 hours As needed; 12 tablet. Zofran 4 mg Oral Tablet - take 1 tablet by ORAL route every 12 hours As needed; 20 tablet. Flomax 0.4 mg Oral Capsule, Sust. Release 24 hr - take 1 capsule by ORAL route once daily 1/2 hour following the same meal each day; 30 capsule. - Work release form, Medication Reconciliation Form, Thank You Letter, Prescription Opioid Use form. - Follow up: Tamera Grajeda MD; When: 2 - 3 days; Reason: Recheck today's complaints, Re-evaluation by your physician. - Problem is new. - Symptoms have improved. Signatures: Dispatcher [employer] EDMS Mayur Santiago RN RN sg Rittger, Kevin, MD MD [facility] Jose Dutton PA PA jr8 Corrections: (The following items were deleted from the chart) 09/10 07:18 07:15 Urine Test ordered. jr8 dh3 09:34 09:23 09/10/2019 09:23 Discharged to Home. Impression: Hydronephrosis with renal and sg ureteral calculous obstruction. Condition is Stable. Forms are Medication Reconciliation Form, Thank You Letter, Antibiotic Education, Prescription Opioid Use. Follow up: Tamera Grajeda; When: 2 - 3 days; Reason: Recheck today's complaints, Re-evaluation by your physician. Problem is new. Symptoms have improved. jr8
[2019-09-10 09:42] VITALS: BP 141/84; TEMP 97.9; O2SAT 98
[2019-09-10 19:01] LABS: Urine Blood 3+ (NEG); Urine Glucose NEGATIVE (NEG); Urine Protein NEGATIVE (NEG)
== END 2019-09-10 09:34 | disposition home or self-care (01) ==
LOC: ER 06:53
DX: N13.2 Hydronephrosis with renal and ureteral calculous obstruction (principal)
CPT/HCPCS: 85025; 80048; 36415; 80076; 81003; 83690; 74177; 96375; 96374; 99284; Q9967; J7030; J2405

== ENCOUNTER 2021-12-03 12:56 | Emergency (ER) | payer OTHER ==
--- OUTSIDE RECORDS SUMMARY | 2021-12-03 13:00 | XMS REPORT | Continuity of Care Document ---
:1975 Author Organization [facility] t Address [address] [place] [address] Care Team Providers Name Role Phone PCP, PATIENT DOES NOT HAVE A Primary Care Physician UnavailAliyah Cole Attending Clinician Unavailable Maryanne KELSEY S Attending Clinician Leroy MADDEN Attending Clinician Unavailable Laura DUMAS Attending Clinician Unavailable Laura Dumas MD Attending Clinician Payers Payer Name Policy Type Policy Number Effective Date Expiration Date Leroy loredo [employer] [id number] 2019spring 00:00:00 MEDICAID [facility] [id number] 2019 00:00:00 Problems Condition Condition Condition Status Onset Resolution Last Treating Co mments Source Name Details Category Date Date Treatment Clinician Date No known No known Disease Unive rs active active ity of problems problems [facility] Allergies, Adverse Reactions, Alerts Allergy Allergy Status Severity Reaction(s) Onset Inactive Treating Comm ents Source Name Type Date Date Clinician ASPIRIN DRUG Active Swelling 2019-11 Univers INGREDI 2-30 ity of 00:00: [address] Aspirin Propensi Active Swelling 2019-11 Unable to Un alicia ty to 2-30 breath ity of adverse 00:00: [place] reaction 00 Medical s Branch aspirin DA Active U 2019-11 [facility] 2[facility]18 [place] 00:00: Health 00 are To[place] aspirin DA Active U 2019-11 [facility] 2-18 [place] 00:00: Health[facility] 00 are Topping NO KNOWN Drug Active Univers ALLERGIE Class ity of S [facility] Low-Dose Adverse Active throat [facility] Aspirin Reaction [facility] Social History Social Habit Start Date Stop Date Quantity Comments Source Exposure to Not sure [facility] SARS-CoV-2 (event) Medica l [place] Tobacco use and 2021-01-26 2021-01-26 Never used [facility] exposure 00:00:00 00:00:00 Medical Branch Sex Assigned At [birth year] [facility] 00:00:00 00:00:00 Medical [place] Smoking Status Start Date Stop Date Source Never smoker [facility] Medications Ordered Filled Start Stop Current Ordering Indication Dosage Frequency Signature Comments Components Source Medication Medication Date Date Medication? Clinician (SIG) Name Name montelust 2019-11 Yes Univer s 10 mg 2-28 ity of tablet 00:00: [place] [facility] [place] montelukast 2019-11 Yes Univer s 10 mg 2-28 ity of tablet 00:00: [place] [facility] [place] montelukast 2019-11 Yes Univer s 10 mg 2-28 ity of tablet 00:00: [place] 00 [facility] [place] montelukast 2019-11 Yes Univer s 10 mg 2-28 ity of tablet 00:00: [place] [facility] [place] montelukast 2019-11 Yes Univer s 10 mg 2-28 ity of tablet 00:00: [place] [facility] [place] montelukast 2019-11 Yes Univer s 10 mg 2-28 ity of tablet 00:00: [place] [facility] [place] montelukast 2019-11 Yes Univer s 10 mg 2-28 ity of tablet 00:00: [place] [facility] [place] montelukast 2019-11 Yes Univer s 10 mg 2-28 ity of tablet 00:00: [place] 00 [facility] montelukast 2019-11 Yes Univer s 10 mg 2-28 ity of tablet 00:00: [place] 00 [facility] montelukast 2020-1 Yes Univer s 10 mg 2-28 ity of tablet 00:00: [place] [facility] montelukast 2020-1 Yes Univer s 10 mg 2-28 ity of tablet 00:00: [place] [facility] montelukast 2020-1 Yes Univer s 10 mg 2-28 ity of tablet 00:00: [place] [facility] temazepam 2020-1 Yes 30mg Take 30 mg Un alicia 30 mg 2-22 by mouth ity of capsule 00:00: at [place] [address] bedtime. Medical Branch citalopram 2019-1 Yes 20mg Take 20 mg U nivers 20 mg 2-22 by mouth ity of tablet 00:00: daily. Medical Branch ALPRAZolam 2019- Yes TAKE 1 Unive rs 0.5 mg 2-22 TABLET BY ity of tablet 00:00: MOUTH [place] TWICE Medical DAILY Branch NEEDED buPROPion 2019- Yes 300mg Take 300 Uni vers XL 300 mg 2-22 mg by ity of 24 hr 00:00: mouth [place] tablet 00 daily. Medical Branch lamoTRIgine 2019-1 Yes 200mg Take 200 U nivers 200 mg 2-22 mg by ity of tablet 00:00: mouth [place] 00 daily. Medical Branch lamoTRIgine 2019- Yes 100mg Take 100 U nivers 100 mg 2-22 mg by ity of tablet 00:00: mouth [place] 00 daily. Medical Branch temazepam 2019- Yes 30mg Take 30 mg Un alicia 30 mg 2-22 by mouth ity of capsule 00:00: at [place] [address] bedtime. Medical Branch citalopram 2019-1 Yes 20mg Take 20 mg U nivers 20 mg 2-22 by mouth ity of tablet 00:00: daily. Medical Branch ALPRAZolam 2019- Yes TAKE 1 Unive rs 0.5 mg 2-22 TABLET BY ity of tablet 00:00: MOUTH [place] 00 TWICE Medical DAILY Branch NEEDED buPROPion 2019-1 Yes 300mg Take 300 Uni vers XL 300 mg 2-22 mg by ity of 24 hr 00:00: mouth [place] tablet 00 daily. Medical Branch lamoTRIgine 2019-1 Yes 200mg Take 200 U nivers 200 mg 2-22 mg by ity of tablet 00:00: mouth [place] 00 daily. Medical Branch lamoTRIgine 2019-11 Yes 100mg Take 100 U nivers 100 mg 2-22 mg by ity of tablet 00:00: mouth [place] 00 daily. Medical Branch temazepam 2019-11 Yes 30mg Take 30 mg Un alicia 30 mg 2-22 by mouth ity of capsule 00:00: at [place] 00 bedtime. Medical Branch citalopram 2019-11 Yes 20mg Take 20 mg U nivers 20 mg 2-22 by mouth ity of tablet 00:00: daily. Medical Branch ALPRAZolam 2019-11 Yes TAKE 1 Unive rs 0.5 mg 2-22 TABLET BY ity of tablet 00:00: MOUTH [place] 00 TWICE Medical DAILY Branch NEEDED buPROPion 2019-11 Yes 300mg Take 300 Uni vers XL 300 mg 2-22 mg by ity of 24 hr 00:00: mouth [place] tablet 00 daily. Medical Branch lamoTRIgine 2019-11 Yes 200mg Take 200 U nivers 200 mg 2-22 mg by ity of tablet 00:00: mouth [place] 00 daily. Medical Branch lamoTRIgine 2019-11 Yes 100mg Take 100 U nivers 100 mg 2-22 mg by ity of tablet 00:00: mouth [place] 00 daily. Medical Branch temazepam 2019-11 Yes 30mg Take 30 mg Un alicia 30 mg 2-22 by mouth ity of capsule 00:00: at [place] [address] bedtime. Medical Branch citalopram 2019-11 Yes 20mg Take 20 mg U nivers 20 mg 2-22 by mouth ity of tablet 00:00: daily. Medical Branch ALPRAZolam 2019-11 Yes TAKE 1 Unive rs 0.5 mg 2-22 TABLET BY ity of tablet 00:00: MOUTH [place] 00 TWICE Medical DAILY Branch NEEDED buPROPion 2019-11 Yes 300mg Take 300 Uni vers XL 300 mg 2-22 mg by ity of 24 hr 00:00: mouth [place] tablet 00 daily. Medical Branch lamoTRIgine 2019-11 Yes 200mg Take 200 U nivers 200 mg 2-22 mg by ity of tablet 00:00: mouth [place] 00 daily. Medical Branch lamoTRIgine 2019-11 Yes 100mg Take 100 U nivers 100 mg 2-22 mg by ity of tablet 00:00: mouth [place] 00 daily. Medical Branch temazepam 2019-11 Yes 30mg Take 30 mg Un alicia 30 mg 2-22 by mouth ity of capsule 00:00: at [place] 00 bedtime. Medical Branch citalopram 2019- Yes 20mg Take 20 mg U nivers 20 mg 2-22 by mouth ity of tablet 00:00: daily. Medical Branch ALPRAZolam 2019- Yes TAKE 1 Unive rs 0.5 mg 2-22 TABLET BY ity of tablet 00:00: MOUTH [place] 00 TWICE Medical DAILY Branch NEEDED buPROPion 2019-11 Yes 300mg Take 300 Uni vers XL 300 mg 2-22 mg by ity of 24 hr 00:00: mouth [place] tablet 00 daily. Medical Branch lamoTRIgine 2019-11 Yes 200mg Take 200 U nivers 200 mg 2-22 mg by ity of tablet 00:00: mouth [place] 00 daily. Medical Branch lamoTRIgine 2019-11 Yes 100mg Take 100 U nivers 100 mg 2-22 mg by ity of tablet 00:00: mouth [place] 00 daily. Medical Branch temazepam 2019- Yes 30mg Take 30 mg Un alicia 30 mg 2-22 by mouth ity of capsule 00:00: at [place] [address] bedtime. Medical Branch citalopram 2019-11 Yes 20mg Take 20 mg U nivers 20 mg 2-22 by mouth ity of tablet 00:00: daily. 00 Medical Branch ALPRAZolam 2019- Yes TAKE 1 Unive rs 0.5 mg 2-22 TABLET BY ity of tablet 00:00: MOUTH [place] 00 TWICE Medical DAILY Branch NEEDED buPROPion 2019- Yes 300mg Take 300 Uni vers XL 300 mg 2-22 mg by ity of 24 hr 00:00: mouth [place] tablet 00 daily. Medical Branch lamoTRIgine 2019-11 Yes 200mg Take 200 U nivers 200 mg 2-22 mg by ity of tablet 00:00: mouth [place] 00 daily. Medical Branch lamoTRIgine 2019-11 Yes 100mg Take 100 U nivers 100 mg 2-22 mg by ity of tablet 00:00: mouth [place] 00 daily. Medical Branch temazepam 2019- Yes 30mg Take 30 mg Un alicia 30 mg 2-22 by mouth ity of capsule 00:00: at [place] [address] bedtime. Medical Branch citalopram 2019-11 Yes 20mg Take 20 mg U nivers 20 mg 2-22 by mouth ity of tablet 00:00: daily. Medical Branch ALPRAZolam 2019-11 Yes TAKE 1 Unive rs 0.5 mg 2-22 TABLET BY ity of tablet 00:00: MOUTH [place] 00 TWICE Medical DAILY Branch NEEDED buPROPion 2019-11 Yes 300mg Take 300 Uni vers XL 300 mg 2-22 mg by ity of 24 hr 00:00: mouth [place] tablet 00 daily. Medical Branch lamoTRIgine 2019-11 Yes 200mg Take 200 U nivers 200 mg 2-22 mg by ity of tablet 00:00: mouth [place] 00 daily. Medical Branch lamoTRIgine 2019-11 Yes 100mg Take 100 U nivers 100 mg 2-22 mg by ity of tablet 00:00: mouth [place] 00 daily. Medical Branch temazepam 2019-11 Yes 30mg Take 30 mg Un alicia 30 mg 2-22 by mouth ity of capsule 00:00: at [place] [address] bedtime. Medical Branch citalopram 2019-11 Yes 20mg Take 20 mg U nivers 20 mg 2-22 by mouth ity of tablet 00:00: daily. Medical Branch ALPRAZolam 2019-11 Yes TAKE 1 Unive rs 0.5 mg 2-22 TABLET BY ity of tablet 00:00: MOUTH 00 TWICE Medical DAILY Branch NEEDED buPROPion 2019-11 Yes 300mg Take 300 Uni vers XL 300 mg 2-22 mg by ity of 24 hr 00:00: mouth [place] tablet 00 daily. Medical Branch lamoTRIgine 2019-11 Yes 200mg Take 200 U nivers 200 mg 2-22 mg by ity of tablet 00:00: mouth [place] 00 daily. Medical Branch lamoTRIgine 2019-11 Yes 100mg Take 100 U nivers 100 mg 2-22 mg by ity of tablet 00:00: mouth [place] 00 daily. Medical Branch temazepam 2019- Yes 30mg Take 30 mg Un alicia 30 mg 2-22 by mouth ity of capsule 00:00: at [place] [address] bedtime. Medical Branch citalopram 2019-11 Yes 20mg Take 20 mg U nivers 20 mg 2-22 by mouth ity of tablet 00:00: daily. Medical Branch ALPRAZolam 2019- Yes TAKE 1 Unive rs 0.5 mg 2-22 TABLET BY ity of tablet 00:00: MOUTH [place] 00 TWICE Medical DAILY Branch NEEDED buPROPion 2019-11 Yes 300mg Take 300 Uni vers XL 300 mg 2-22 mg by ity of 24 hr 00:00: mouth [place] tablet 00 daily. Medical Branch lamoTRIgine 2019-11 Yes 200mg Take 200 U nivers 200 mg 2-22 mg by ity of tablet 00:00: mouth [place] 00 daily. Medical Branch lamoTRIgine 2019-11 Yes 100mg Take 100 U nivers 100 mg 2-22 mg by ity of tablet 00:00: mouth [place] 00 daily. Medical Branch temazepam 2019-11 Yes 30mg Take 30 mg Un alicia 30 mg 2-22 by mouth ity of capsule 00:00: at [place] 00 bedtime. Medical Branch citalopram 2019-11 Yes 20mg Take 20 mg U nivers 20 mg 2-22 by mouth ity of tablet 00:00: daily. Medical Branch ALPRAZolam 2019-11 Yes TAKE 1 Unive rs 0.5 mg 2-22 TABLET BY ity of tablet 00:00: MOUTH [place] 00 TWICE Medical DAILY Branch NEEDED buPROPion 2019-11 Yes 300mg Take 300 Uni vers XL 300 mg 2-22 mg by ity of 24 hr 00:00: mouth [place] tablet 00 daily. Medical Branch lamoTRIgine 2019-11 Yes 200mg Take 200 U nivers 200 mg 2-22 mg by ity of tablet 00:00: mouth [place] 00 daily. Medical Branch lamoTRIgine 2019-11 Yes 100mg Take 100 U nivers 100 mg 2-22 mg by ity of tablet 00:00: mouth [place] 00 daily. Medical Branch temazepam 2019- Yes 30mg Take 30 mg Un alicia 30 mg 2-22 by mouth ity of capsule 00:00: at [place] 00 bedtime. Medical Branch citalopram 2019-11 Yes 20mg Take 20 mg U nivers 20 mg 2-22 by mouth ity of tablet 00:00: daily. Medical Branch ALPRAZolam 2019- Yes TAKE 1 Unive rs 0.5 mg 2-22 TABLET BY ity of tablet 00:00: MOUTH [place] 00 TWICE Medical DAILY Branch NEEDED buPROPion 2019-11 Yes 300mg Take 300 Uni vers XL 300 mg 2-22 mg by ity of 24 hr 00:00: mouth [place] tablet 00 daily. Medical Branch lamoTRIgine 2019-11 Yes 200mg Take 200 U nivers 200 mg 2-22 mg by ity of tablet 00:00: mouth [place] 00 daily. Medical Branch lamoTRIgine 2019- Yes 100mg Take 100 U nivers 100 mg 2-22 mg by ity of tablet 00:00: mouth [place] 00 daily. Medical Branch temazepam 2019- Yes 30mg Take 30 mg Un alicia 30 mg 2-22 by mouth ity of capsule 00:00: at [place] 00 bedtime. Medical Branch citalopram 2019- Yes 20mg Take 20 mg U nivers 20 mg 2-22 by mouth ity of tablet 00:00: daily. [place] 00 Medical Branch ALPRAZolam 2019- Yes TAKE 1 Unive rs 0.5 mg 2-22 TABLET BY ity of tablet 00:00: MOUTH [place] 00 TWICE Medical DAILY Branch NEEDED buPROPion 2019- Yes 300mg Take 300 Uni vers XL 300 mg 2-22 mg by ity of 24 hr 00:00: mouth [place] tablet 00 daily. Medical Branch lamoTRIgine 2019-11 Yes 200mg Take 200 U nivers 200 mg 2-22 mg by ity of tablet 00:00: mouth [place] 00 daily. Medical Branch lamoTRIgine 2019-11 Yes 100mg Take 100 U nivers 100 mg 2-22 mg by ity of tablet 00:00: mouth [place] 00 daily. Medical Branch verapamiL 2019-11 Yes 40mg Take 40 mg Un alicia 40 mg 2-11 by mouth 2 ity of tablet 00:00: (two) [place] 00 times Medical daily. Branch verapamiL 2019-11 Yes 40mg Take 40 mg Un alicia 40 mg 2-11 by mouth 2 ity of tablet 00:00: (two) [place] 00 times Medical daily. Branch verapamiL 2019-11 Yes 40mg Take 40 mg Un alicia 40 mg 2-11 by mouth 2 ity of tablet 00:00: (two) [place] 00 times Medical daily. Branch verapamiL 2019- Yes 40mg Take 40 mg Un alicia 40 mg 2-11 by mouth 2 ity of tablet 00:00: (two) [place] 00 times Medical daily. Branch verapamiL 2019-11 Yes 40mg Take 40 mg Un alicia 40 mg 2-11 by mouth 2 ity of tablet 00:00: (two) [place] 00 times Medical daily. Branch verapamiL 2019-11 Yes 40mg Take 40 mg Un alicia 40 mg 2-11 by mouth 2 ity of tablet 00:00: (two) [place] 00 times Medical daily. Branch verapamiL 2020-1 Yes 40mg Take 40 mg Un alicia 40 mg 2-11 by mouth 2 ity of tablet 00:00: (two) [place] 00 times Medical daily. Branch verapamiL 2020-1 Yes 40mg Take 40 mg Un alicia 40 mg 2-11 by mouth 2 ity of tablet 00:00: (two) 00 times Medical daily. Branch verapamiL 2020-1 Yes 40mg Take 40 mg Un alicia 40 mg 2-11 by mouth 2 ity of tablet 00:00: (two) 00 times Medical daily. Branch verapamiL 2020- Yes 40mg Take 40 mg Un alicia 40 mg 2-11 by mouth 2 ity of tablet 00:00: (two) 00 times Medical daily. Branch verapamiL 2020- Yes 40mg Take 40 mg Un alicia 40 mg 2-11 by mouth 2 ity of tablet 00:00: (two) [place] 00 times Medical daily. Branch verapamiL 2019- Yes 40mg Take 40 mg Un alicia 40 mg 2-11 by mouth 2 ity of tablet 00:00: (two) 00 times Medical daily. Branch gemfibroziL 2019- Yes TK 1 T PO U nivers 600 mg 0-14 QD ity of tablet 00:00: Medical Branch gemfibroziL 2019-1 Yes TK 1 T PO U nivers 600 mg 0-14 QD ity of tablet 00:00: [place] [facility] gemfibroziL 2019-1 Yes TK 1 T PO U nivers 600 mg 0-14 QD ity of tablet 00:00: Medical Branch gemfibroziL 2020-1 Yes TK 1 T PO U nivers 600 mg 0-14 QD ity of tablet 00:00: [place] [facility] gemfibroziL 2020-1 Yes TK 1 T PO U nivers 600 mg 0-14 QD ity of tablet 00:00: Medical Branch gemfibroziL 2019-1 Yes TK 1 T PO U nivers 600 mg 0-14 QD ity of tablet 00:00: [place] [facility] gemfibroziL 2020-1 Yes TK 1 T PO U nivers 600 mg 0-14 QD ity of tablet 00:00: Medical Branch gemfibroziL 2020-1 Yes TK 1 T PO U nivers 600 mg 0-14 QD ity of tablet 00:00: [place] [facility] gemfibroziL 2019-11 Yes TK 1 T PO U nivers 600 mg 0-14 QD ity of tablet 00:00: [place] [facility] gemfibroziL 2019-11 Yes TK 1 T PO U nivers 600 mg 0-14 QD ity of tablet 00:00: [place] [facility] gemfibroziL 2019-11 Yes TK 1 T PO U nivers 600 mg 0-14 QD ity of tablet 00:00: [place] [facility] gemfibroziL 2019-11 Yes TK 1 T PO U nivers 600 mg 0-14 QD ity of tablet 00:00: [address] Albuterol Albuterol 2019-0 Yes Na [place] [address] [facility] Sulfate HFA Sulfate HFA 7-05 [facility] Gemfibrozil Gemfibrozil 20190 Yes Na [place] [address] [facility]05 [facility] Wellbutrin Wellbutrin 2017-11 Yes Na [place] [address] [facility] SR SR 0-31 in the [facility] 00:[facility] morning [facility] Augmentin Augmentin 2017-11 2019- No Na [place]ty [address] [facility] 0-03 11-04 [facility] 00:[facility]: [facility]00 [facility] Mirtazapine Mirtazapine 2018-0 Yes Na [place] [address] [facility] 7-30 at bedtime [facility] Omeprazole Omeprazole Yes Na [facility]ty [address] [facility] Montelukast Montelukast Yes Na Beatty [address] [facility] Sodium Sodium in the [facility] - evening [facility] Symbicort Symbicort Yes Na Beatty [address] [facility] Claritin Claritin Yes Na Beatty [address] [facility] ProAir HFA ProAir HFA Yes Na Beatty [address] [facility] needed [facility] Albuterol Albuterol Yes Na Beatty [address] [facility] Sulfate Sulfate needed [facility]ics Prozac Prozac Yes Na Beatty 1 CAP(S) [facility] ORALLY [facility] - ONCE A DAY [facility]oria FOR 30 l DAYS [facility] ent [facility] Promethazin Promethazin Yes Na Beatty [address] [facility] e HCl e HCl as needed [facility] Wellbutrin Wellbutrin Yes Na Beatty [address] [facility] SR SR in the [facility] - morning [facility] l [facility] Clinics Prozac Prozac Yes Na Beatty [address] [facility] Montelukast Montelukast Yes Na Beatty TAKE [address] [facility] Sodium Sodium TABLET BY [facility] - MOUTH [facility]oria EVERY l EVENING [facility] Clinics BuPROPion BuPROPion Yes Na Beatty [address] [facility] HCl ER (XL) HCl ER (XL) in the [facility] - morning [facility] l [facility] Clinics Quetiapine Quetiapine Yes Na Beatty [address] [facility] Fumarate Fumarate at bedtime [facility] Clinics [place] Na Beatty [address] Carbonate Carbonate at bedtime [facility] Verapamil Verapamil Yes Na Beatty [address] [address] HCl HCl [facility] l [facility] Escitalopra Escitalopra Yes Na Beatty [address] [facility] m Oxalate m Oxalate [facility] l [facility] amitriptyli amitriptyli Yes Na Beatty one tab [facility] ne ne [facility] Immunizations Ordered Filled Immunization Date Status Comments [facility] e Immunization Name Name Flucelvax - Flucelvax - 2019-08-[address] [facility] - multidose vial multidose vial 00:00:00 [facility] Vital Signs Vital Name Observation Time Observation Value Comments Source Systolic blood 2021-01-26 17:56:00 126 mm[Hg] [facility] Diastolic blood 2021-01-26 17:56:00 83 mm[Hg] [facility] Body height 2021-01-26 17:56:00 175.3 cm [facility] Body weight 2021-01-26 17:56:00 86.183 kg [facility] [place] [facility] BMI 2021-01-26 17:56:00 28.06 kg/m2 [facility] [place] [facility] Systolic blood 2020-12-15 19:16:00 121 mm[Hg] [facility] [place] [facility] Diastolic blood 2020-12-15 19:16:00 80 mm[Hg] [facility] [place] [facility] Heart rate 2020-12-15 19:16:00 78 /min [facility] [place] [facility] Body height 2020-12-15 19:16:00 175.3 cm [facility] [place] [facility] Body weight 2020-12-15 19:16:00 86.183 kg [facility] [place] [facility] BMI 2020-12-15 19:16:00 28.06 kg/m2 [facility] [place] [facility] Systolic blood 2020-11-23 19:14:00 131 mm[Hg] [facility] [place] [facility] Diastolic blood 2020-11-23 19:14:00 81 mm[Hg] [facility] [place] pressure [facility] Heart rate 2020-11-23 19:14:00 85 /min [facility] [place] [facility] Body height 2020-11-23 19:14:00 175.3 cm [facility] [place] [facility] Body weight 2020-11-23 19:14:00 86.183 kg [facility] [place] [facility] BMI 2020-11-23 19:14:00 28.06 kg/m2 [facility] [place] [facility] Systolic blood 2020-11-09 20:02:00 135 mm[Hg] [facility] [place] [facility] Diastolic blood 2020-11-09 20:02:00 85 mm[Hg] [facility] [place] pressure [facility] Heart rate 2020-11-09 20:02:00 90 /min [facility] [place] [facility] Body height 2020-11-09 20:02:00 175.3 cm [facility] [place] [facility] Body weight 2020-11-09 20:02:00 86.637 kg [facility] [place] [facility] BMI 2020-11-09 20:02:00 28.21 kg/m2 [facility] [place] [facility] Procedures Procedure Date / Time Performed Performing Clinician Sourc e XR ANKLE <3 VW RIGHT 2021-01-26 18:03:55 Jennifer Madden [facility] [place] XR ANKLE <3 VW RIGHT 2020-12-15 19:15:06 [facility] Encounters Start End Encounter Admission Attending Care Care Encounter Source Date/Time Date/Time Type Type Clinicians Facility Department ID 2020-10-28 Inpatient HCATB SHASHANK [id number] [facility] 22:59:00 [id number] [facility] are [place] 2021-09-20 2021-09-20 ambulatory [facility]ML[facility] [id number] [facility] 2021-09-19 2021-09-19 ambulatory [facility] [id number] [facility] 2021-09-01 2021-09-01 Outpatient [facility]ML[facility] [id number] [facility] 2021-08-31 2021-08-31 Outpatient [facility]ML[facility] [id number] [facility] 2021-06-20 2021-06-20 Outpatient [facility]ML[facility] [id number] [facility] 2021-06-19 2021-06-19 Outpatient [facility]MLC [facility] [id number] [facility] 2021-03-24 2021-03-24 Outpatient [facility] [id number] [facility] 2021-03-15 2021-03-15 Outpatient [facility]MLC [facility] [id number] [facility] 2021-02-05 2021-02-05 Outpatient Carlie PEDRAZA [facility] [id number] [facility] 13:25:00 13:25:00 ROSE [facility] [place] 2021-01-26 2021-01-26 [facility] [id number] Univers 13:03:55 23:59:00 Encounter Jennifer Harper [facility] [id number] ity of Surgical [id number] Junior as Specialti [id number] Az dical es 809 [facility] 2021-01-26 2021-01-26 Outpatient [place] [id number] Univers 13:03:55 23:59:00 JENNIFER [facility] [place] 2021-01-26 2021-01-26 Office [facility] [id number] Univers 12:53:30 13:35:34 Visit Jennifer Harper [facility] [id number] it y of Surgical [id number] Junior as Specialti [id number] Az dical es 198 [facility] 2021-01-26 2021-01-26 Outpatient [place] [id number] Univers 13:00:00 13:00:00 JENNIFER [id number] [facility] [place] 2021-01-11 2021-01-11 Outpatient [place] [id number] Univers 13:15:00 13:15:00 JACQUELINE [id number] [facility] [place] 2021-01-08 2021-01-08 Outpatient [place] [id number] Univers 13:05:00 13:05:00 ROSE [facility] [place] 2020-12-15 2020-12-15 [facility] [id number] Univers 13:15:05 23:59:00 Encounter Jacqueline [facility] [id number] ity of Surgical [id number] Junior as Specialti [id number] Az dical es 809 [facility] 2020-12-15 2020-12-15 Outpatient [place] [id number] Univers 13:15:05 23:59:00 JACQUELINE [facility] [place] 2020-12-15 2020-12-15 [place]patient [place] [id number] Univers 14:15:00 14:15:00 JACQUELINE [id number] [facility] 2020-12-15 2020-12-15 [facility] [id number] Univers 13:01:50 13:49:45 Visit Jacqueline Sanchez [facility] [id number] it y of Surgical [id number] Junior as Specialti [id number] Me dical es 198 [facility] 2020-11-23 2020-11-23 [place] [id number] Univers 13:18:15 23:59:00 [facility] 2020-11-23 2020-11-23 [facility] [id number] Univers 13:18:15 23:59:00 Encounter Jacqueline Sanchez [facility] [id number] ity of Surgical [id number] Junior as Specialti [phone] Az dical es 809 [facility] 2020-11-23 2020-11-23 [place] [id number] Univers 13:45:00 13:45:00 JACQUELINE [id number] [facility] 2020-11-23 2020-11-23 Office [facility] [id number] Univers 13:09:14 13:39:48 Visit Jacqueline Sanchez [facility] [id number] it y of Surgical [id number] Junior as Specialti [id number] Az dical es 198 [facility] 2020-11-18 2020-11-18 Outpatient [facility]LMLC [facility]MLC [id number] [facility] 2020-11-09 2020-11-09 [place] [id number] Univers 14:18:19 23:59:00 [facility] 2020-11-09 2020-11-09 [facility] [id number] Univers 14:18:19 23:59:00 Encounter Jacqueline Sanchez [facility] [id number] ity of Surgical [id number] Junior as Specialti [phone] Me dical es 809 [facility] 2020-11-09 2020-11-09 Office OZZIE Dumas [id number] Univers 13:51:01 14:32:27 Visit Jacqueline Sanchez [facility] [id number] it y of Surgical [id number] Junior as Specialti [id number] Me dical es 198 [facility] 2020-10-31 2020-10-31 Outpatient STLMLC [facility]ML[facility] [id number] [facility] 2020-10-31 2020-10-31 Outpatient STLMLC [facility]ML[facility] [id number] [facility] 2020-09-05 2020-09-05 Outpatient [facility]LMLC STLML[facility] [id number] [facility] 2020-08-18 2020-08-18 Outpatient [facility]LMLC [facility] [id number] [facility] 2020-05-31 2020-05-31 [facility] [id number] [facility] 12:49:00 12:49:00 [place] - [facility] 2020-05-27 2020-05-27 [facility] [id number] [facility] 14:00:00 14:00:00 [place] [employer] [place] [facility] - [facility] 2020-05-27 2020-05-27 [facility] [id number] 13:40:00 13:40:00 [place] [employer] s - Drive [facility] 2020-05-21 2020-05-21 [facility] [id number] [facility] 12:13:00 12:13:00 [place] [employer] s - Drive [facility] 2020-05-18 2020-05-18 [facility] [id number] [facility] 10:00:00 10:00:[address] [place] [address] [place] - [address] [facility] l Medicine Outpati ent Clinics 2020-02-12 2020-02-12 [facility] [id number] [facility] 10:20:00 10:20:00 [place] - [facility] l Medicine Outpat[facility] ent Clinics 2019-11-16 2019-11-16 [facility] [id number] 14:36:00 14:36:00 [place] - [facility] Medicine Outpat[facility] ent Clinics 2019-11-16 2019-11-16 [facility] [id number] 09:40:00 09:40:00 [place] - [facility] l Medicine Outpati ent Clinics 2019-10-27 2019-10-27 [facility] [id number] [facility] 11:21:00 11:21:00 [place] - [facility] l Medicine Outpati ent Clinics 2019-09-07 2019-09-07 [facility] [id number] 11:00:00 11:00:00 [place] - [facility] l Medicine Outpati ent Clinics 2019-08-17 2019-08-17 [facility] [id number] 10:20:00 10:20:00 [place] - [facility] Medicine l Medicine Outpati ent Clinics 2019-05-15 2019-05-15 [facility] [id number] [facility] 10:20:00 10:20:00 [place] - [facility] Medicine l Medicine Outpati ent Clinics 2019-02-12 2019-02-12 [facility] [id number] [facility] 09:20:00 09:20:00 [place] - [facility] Medicine l Medicine Outpati ent Clinics 2018-11-26 2018-11-26 [facility] [id number] [facility] 14:50:00 14:50:[address] [place] [address] [facility] [address] - [address] [facility] Medicine Outpat[facility] Clinics 2018-11-21 2018-11-21 [facility] [id number] [facility] 10:28:00 10:28:[address] [place] [address] [place] [address] - [address] [facility] Medicine l Medicine Outpati ent Clinics 2018-11-07 2018-11-07 [facility] [id number] [facility] 09:30:00 09:30:[address] [place] [address] [place] [address] - [address] [facility] Medicine Outpat[facility] Clinics 2018-10-15 2018-10-15 [facility] [id number] [facility] [facility] 14:30:00 14:30:[address] [address] [place] [address] - [address] [facility] Medicine Medicine Outpati ent Clinics 2018-08-13 2018-08-13 [facility] [id number] [facility] 10:45:00 10:45:00 [place] [employer] [place] - Drive [facility] Medicine Medicine Outpati ent Clinics 2018-06-09 2018-06-09 [facility] [id number] [facility] 10:00:00 10:00:00 [place] - Drive [facility] Medicine Medicine Outpati ent Clinics 2018-03-10 2018-03-10 [facility] [id number] [facility] 09:45:00 09:45:00 [place] [employer] s - Drive [facility] Medicine Medicine Outpati ent Clinics Results Test Description Test Time Test Comments Results Result Sour e Comments XR ANKLE <3 VW 2021-01-09 The fracture Universi ty of RIGHT 8 transverse in the [facility] edical 18:20:21 lateral malleolus Branch show some signs of healing but not nearly enough healing for the duration of the fracture and this is developing into a nonunion. ? XR ANKLE <3 VW Fracture healing Univ ersity of RIGHT 4 well in acceptable [facility] 21:57:12 position Branch - XR FOOT 3 + V 2020-10-11 RT 9 00:01:00 [facility] 1975 Sex: M Patient Name: ARUN CHAMPAGNE Unit No: [id number] EXAMS: CPT: [id number] XR FOOT 3 + V [place] [id number] Right foot, 4 views, 10/28/2020. Clinical: Trauma. Comment: Soft tissue swelling is present. There are no acute fractures involving the osseous structures at the mid/forefoot levels. IMPRESSION: No acute fractures detected. at 0001 Reported and signed by: Jad Dumont MD CC: Tyrone Murray MD Technologist: Enrique Edwards; Tavon Champion Fluoro Time: DAP (Gy m2): Air Kerma (mGy): Trscr Dt/Tm: 10/29/2020 (0001) by:[email or web address] Orig Print D/T: S: 10/29/2020 (0004) BATCH NO: N/A Name: ARUN CHAMPAGNE [facility] [place] Phys: BERDA.Rula - Tyrone Murray M [address] : 1975 Age: 44 Sex: M [place] Loc: T.ERS Exam Date: 10/28/2020 Status: REG ER PH: FAX: PAGE 1 Signed Report - XR ANKLE 3 + V 2020-10-11 RT 9 00:00:00 [facility] : 1975 Sex: M Patient Name: ARUN CHAMPAGNE Unit No: [id number] EXAMS: CPT: [id number] XR ANKLE 3 + V RT [id number] Right ankle, 4 views, 10/28/2020. Clinical: Trauma. Comment: Soft tissue swelling is present. There is an acute fracture involving the lateral malleolus. There is an acute fracture involving the medial malleolus at the plafond. There is a possible acute fracture involving the medial aspect of the talus. There is no evidence of dislocation. IMPRESSION: Acute fractures as described above. at 0000 Reported and signed by: Jad Dumont MD CC: Tyrone Murray MD Technologist: Enrique Edwards; Tavon Champion Fluoro Time: DAP (Gy m2): Air Kerma (mGy): Trscr Dt/Tm: 10/29/2020 (0000) by:[email or web address] Orig Print D/T: S: 10/29/2020 (0003) BATCH NO: N/A Name: ARUN CHAMPAGNE [facility] [place] Phys: [email or web address] - Tyrone Murray [address] [facility] : 1975 Age: 44 Sex: M [place] Loc: T.ERS Exam Date: 10/28/2020 Status: REG ER PH: FAX: PAGE 1 Signed Report
[2021-12-03 14:52] LABS: Absolute Lymphocytes (CBC) 1.5 K/uL (0.7-4.9); Hematocrit 46.5 % (39.6-49.0); Lymphocytes % 18.6 % (15.3-44.8); MPV 7.3 fL (7.6-11.3); RBC Red Blood Cell Count 5.17 M/uL (4.33-5.43)
[2021-12-03 15:11] LABS: Bilirubin Direct 0.1 mg/dL (0-0.2); Bilirubin Total 0.4 mg/dL (0.2-1.0); Potassium 3.8 mmol/L (3.5-5.1); Protein, Total 7.6 g/dL (6.4-8.2)
--- NOTE | 2021-12-03 15:29 | RAD REPORT ---
EXAM DESCRIPTION: CTAbdomen Pelvis W Contrast - 12/03/2021 2:58 pm CLINICAL HISTORY: lower abdominal pain COMPARISON: Abdomen Pelvis W Contrast dated 09/10/2019 TECHNIQUE: CT of the abdomen and pelvis was performed. All CT scans are performed using dose optimization technique as appropriate and may include automated exposure control or mA/KV adjustment according to patient size. FINDINGS: Lower chest: No acute abnormality. Liver: Low-density lesion right hepatic lobe measuring 16 millimeters is compatible with a benign pro cess such as hemangioma or cyst. This is unchanged since 2019. Biliary: No biliary ductal dilatation. Stomach: No significant focal abnormality. Duodenum: No significant focal abnormality. Pancreas: No significant abnormality. Spleen: No significant abnormality. Adrenal: No suspicious lesions. Kidney/ureter: No hydronephrosis. No renal calculi. Retroperitoneum: No retroperitoneal adenopathy. Vascular: No aneurysm. Bowel: No significant focal abnormality. Normal appendix. Peritoneum: No ascites or free air. Bladder: Grossly unremarkable. Reproductive: No adnexal masses. Bones: No acute fracture. Other: n/a IMPRESSION: No acute intra-abdominal or pelvic finding.
--- NOTE | 2021-12-03 16:13 | EDPHYS ---
Physician Documentation [facility] Name: Roney Sandoval Age: 45 yrs Sex: Male : 1975 Arrival Date: 12/03/2021 Time: 12:59 Bed 18 Private MD: Cadence Beatty ED Physician Wade Cerda HPI: 12/03 14:27 This 45 yrs old Male presents to ER via Ambulatory with complaints of jmm InQuicker \T\[id number], Decreased Appetite, Nausea, Abdominal Pain, unable to sleep. 14:27 The patient presents with abdominal pain. Onset: The symptoms/episode began/occurred jmm gradually, 1 week(s) ago. The symptoms do not radiate. Associated signs and symptoms: Pertinent positives:. This is a 45-year-old male with history of asthma the presents emerged department with complaints of abdominal pain and decreased appetite beginning approximately 1 week ago. Patient states that anytime he attempts to eat he becomes nauseous. Patient localizes pain mainly to the lower abdomen. Denies diarrhea. Denies fever.. Historical: - Allergies: 13:11 Aspirin; st[place] - Home Meds: 13:11 Prozac 40 mg Oral cap [Active]; Vraylar 3 mg oral cap 1 cap once daily [Active]; [place] verapamil 40 mg Oral tab bid [Active]; gemfibrozil 600 mg Oral tab 1 tab 2 times per day [Active]; Singulair 10 mg Oral tab 1 tab once daily [Active]; alprazolam 0.5 mg Oral tab bid [Active]; - PMHx: 13:11 Asthma; stanley - Immunization history:: Adult Immunizations up to date. - Social history:: Smoking status: Patient denies any tobacco usage or history of. ROS: 14:27 Constitutional: Positive for fatigue. jmm 14:27 Respiratory: Negative for shortness of breath. 14:27 Abdomen/GI: Positive for abdominal pain. 14:27 All other systems are negative. Exam: 14:27 Constitutional: This is a well developed, well nourished patient who is awake, alert, jmm and in no acute distress. Head/Face: atraumatic. Eyes: EOMI, no conjunctival erythema appreciated ENT: Moist Mucus Membranes Neck: Trachea midline, Supple Chest/axilla: Normal chest wall appearance and motion. Cardiovascular: Regular rate and rhythm. No edema appreciated Respiratory: Normal respirations, no respiratory distress appreciated 14:27 Skin: General appearance color normal MS/ Extremity: Moves all extremities, no obvious deformities appreciated, no edema noted to the lower extremities Neuro: Awake and alert, normal gait Psych: Behavior is normal, Mood is normal, Patient is cooperative and pleasant 14:27 Abdomen/GI: Inspection: abdomen appears normal, Bowel sounds: normal, Palpation: soft, mild abdominal tenderness, in the left lower quadrant. Vital Signs: 13:09 BP 126 / 87; Pulse 80; Resp 18; Temp 97.1(T); Pulse Ox 100% ; Weight 88.9 kg; Height 5 stan[place] ft. 9 in. (175.26 cm); 16:35 BP 121 / 85; Pulse 87; Resp 19; Pulse Ox 100% ; bp 13:09 Body Mass Index 28.94 (88.90 kg, 175.26 cm) stanley MDM: 14:27 Patient medically screened. [facility] 16:11 Data reviewed: vital signs, nurses notes. Counseling: I had a detailed discussion with karel the patient and/or guardian regarding: the historical points, exam findings, and any diagnostic results supporting the discharge/admit diagnosis, lab results, radiology results, the need for outpatient follow up, to return to the emergency department if symptoms worsen or persist or if there are any questions or concerns that arise at home. 12/03 14:27 Order name: Basic Metabolic Panel; Complete Time: 15:25 [facility] 12/03 14:27 Order name: CBC with Diff; Complete Time: 16:27 [facility] 12/03 14:27 Order name: Hepatic Function; Complete Time: 15:25 [facility] 12/03 14:27 Order name: Lipase; Complete Time: 15:25 [facility] 12/03 14:27 Order name: CT Abd/Pelvis - IV Contrast Only; Complete Time: 15:34 [facility] 12/03 16:25 Order name: CBC Smear Scan; Complete Time: 16:27 [facility] 12/03 14:27 Order name: IV Saline Lock; Complete Time: 14:48 [facility] 12/03 14:27 Order name: Labs collected and sent; Complete Time: 14:48 [facility] Administered Medications: No medications were administered Disposition: 18:01 Co-signature as Attending Physician, Wade Cerda MD I agree with the assessment and rn plan of care. Attestation: The patient's history, exam findings, diagnostics, and a summary of any interventions or procedures was reviewed in detail with Jayy HOLLIS. Disposition Summary: 12/03/21 16:13 Discharge Ordered [facility] Condition: Stable [facility] Diagnosis - Lower abdominal pain, unspecified jmm Followup: [facility] - With: Eran Wong MD - When: 2 - 3 days - Reason: Recheck today's complaints, Continuance of care, Re-evaluation by your physician Discharge Instructions: - Discharge Summary Sheet [facility] - Abdominal Pain, Adult [facility] Forms: - Medication Reconciliation Form [facility] - Thank You Letter [facility] - Antibiotic Education [facility] - Prescription Opioid Use [facility] Prescriptions: - ondansetron 4 mg Oral tablet,disintegrating - take 1 tablet by ORAL route every 8 hours; 30 tablet; Refills: 0, Product jmm Selection Permitted - dicyclomine 20 mg Oral Tablet - take 1 tablet by ORAL route 4 times per day; 30 tablet; Refills: 0, Product jm Selection Permitted Signatures: Dispatcher [employer] Jayy Herzog PA PA Wade Vargas MD MD rn Kellee-StagerEstrella RN RN stanley Corrections: (The following items were deleted from the chart) 13:14 13:11 Home Meds: None; [place]an[place] stanley
--- NOTE | 2021-12-03 16:13 | ER ---
Nurse's Notes [facility] Name: Roney Sandoval Age: 45 yrs Sex: Male : 1975 Arrival Date: 12/03/2021 Time: 12:59 Bed 18 Private MD: Cadence Beatty Diagnosis: Lower abdominal pain, unspecified Presentation: 12/03 13:09 Chief complaint: Patient states: abdominal pain, nausea and decreased appetite x3 days. st[place] Coronavirus screen: Vaccine status: Patient reports receiving the 2nd dose of the covid vaccine. Ebola Screen: Patient denies travel to an Ebola-affected area in the 21 days before illness onset. Initial Sepsis Screen: Does the patient meet any 2 criteria? No. Patient's initial sepsis screen is negative. Does the patient have a suspected source of infection? No. Patient's initial sepsis screen is negative. Risk Assessment: Do you want to hurt yourself or someone else? Patient reports no desire to harm self or others. Onset of symptoms was November 30, 2021. 13:09 Method Of Arrival: Ambulatory 13:09 Acuity: EMANUEL 3 stanley Triage Assessment: 13:15 General: Appears in no apparent distress. uncomfortable, Behavior is cooperative, bp appropriate for age, anxious. Pain: Complains of pain in abdomen. EENT: No deficits noted. Neuro: No deficits noted. Cardiovascular: No deficits noted. Respiratory: No deficits noted. GI: Reports lower abdominal pain. : No signs and/or symptoms were reported regarding the genitourinary system. Derm: No deficits noted. Musculoskeletal: No deficits noted. Historical: - Allergies: 13:11 Aspirin; stan[place] - Home Meds: 13:11 Prozac 40 mg Oral cap [Active]; Vraylar 3 mg oral cap 1 cap once daily [Active]; [place] verapamil 40 mg Oral tab bid [Active]; gemfibrozil 600 mg Oral tab 1 tab 2 times per day [Active]; Singulair 10 mg Oral tab 1 tab once daily [Active]; alprazolam 0.5 mg Oral tab bid [Active]; - PMHx: 13:11 Asthma; stanley - Immunization history:: Adult Immunizations up to date. - Social history:: Smoking status: Patient denies any tobacco usage or history of. Screenin:15 Abuse screen: Denies threats or abuse. Denies injuries from another. Nutritional bp screening: No deficits noted. Tuberculosis screening: No symptoms or risk factors identified. Fall Risk None identified. Assessment: 13:15 General: SEE TRIAGE NOTE. bp 15:00 Reassessment: No changes from previously documented assessment. Patient and/or family bp updated on plan of care and expected duration. Pain level reassessed. 16:00 Reassessment: No changes from previously documented assessment. Patient and/or family bp updated on plan of care and expected duration. Pain level reassessed. PROVIDER AT B/S. GI: Abdomen is non-distended. 16:35 Reassessment: PT D/C HOME AMBULATORY, DX WITH LOWER ABDOMINAL PAIN. bp Vital Signs: 13:09 BP 126 / 87; Pulse 80; Resp 18; Temp 97.1(T); Pulse Ox 100% ; Weight 88.9 kg; Height 5 satnley ft. 9 in. (175.26 cm); 16:35 BP 121 / 85; Pulse 87; Resp 19; Pulse Ox 100% ; bp 13:09 Body Mass Index 28.94 (88.90 kg, 175.26 cm) [place] ED Course: 12:59 Patient arrived in ED. as 13:01 Cadence Beatty MD is Private Physician. as 13:11 Triage completed. stanley 13:11 Arm band placed on left wrist. stanley 13:15 Patient has correct armband on for positive identification. Bed in low position. Call bp light in reach. Side rails up X2. 14:20 Jeff Oseguera, ERIC is Primary Nurse. bp 14:24 Jayy Avery PA is PHCP. jmm 14:24 Wade Cerda MD is Attending Physician. jmm 14:30 Inserted saline lock: 20 gauge in right forearm, using aseptic technique. Blood bp collected. 14:58 CT Abd/Pelvis - IV Contrast Only In Process Unspecified. EDMS 16:12 Eran Wong MD is Referral Physician. [facility] 16:36 No provider procedures requiring assistance completed. IV discontinued, intact, bp bleeding controlled, No redness/swelling at site. Pressure dressing applied. Administered Medications: No medications were administered Outcome: 16:13 Discharge ordered by . jmm 16:36 Discharged to home ambulatory. bp 16:36 Condition: stable 16:36 Discharge instructions given to Instructed on discharge instructions, follow up and referral plans. medication usage, Demonstrated understanding of instructions, follow-up care, medications, Prescriptions given X 2. 16:40 Patient left the ED. bp Signatures: Dispatcher [employer] EDJayy Hawkins PA PA jmm Martinez, Amelia as Peltier, Brian, RN RN Au-StagerEstrella RN RN ha Corrections: (The following items were deleted from the chart) 13:14 13:11 Home Meds: None; [place] stanley
[2021-12-03 16:26] LABS: Anisocytosis 1+; Blood Morphology Comment NOTED (NOT SEEN); Platelet Estimate ADEQ; White Blood Cell Scan OK (OK)
[2021-12-03 21:37] VITALS: TEMP 97.1; O2SAT 100
[2021-12-03 21:39] VITALS: BP 121/85
== END 2021-12-03 16:40 | disposition home or self-care (01) ==
LOC: ER 12:56
DX: R10.32 Left lower quadrant pain (principal); Z88.6 Allergy status to analgesic agent
CPT/HCPCS: 85025; 80048; 36415; 82565; 80076; 83690; 74177; Q9967; 99284